=== PATIENT | female | born 1995 | race Caucasian/White ===

== ENCOUNTER 2024-10-30 12:58 | Outpatient (CLI) | payer OTHER, MEDICAID, SELFPAY ==
[2024-10-30] VITALS (21 sets, daily range): BP systolic 116; BP diastolic 63; PULSE 77–93; RESP 18–98; TEMP 36.8; O2SAT 96–100; BMI 29.4
[2024-10-30 13:38] LABS: Collection Type, Urine Clean Catch
[2024-10-30 13:52] LABS: ROM Kit Lot # 57804194; ROM Swab Mixed By: OSEGA; Rupture of Fetal Membranes Negative (Negative); Swb Mxed in Solvent 1 min? Yes
[2024-10-30 13:54] LABS: Bacteria,Urine 1+; Bilirubin,Urine Negative (Negative); Blood,Urine Negative (Negative); Clarity,Urine Clear (Clear/Hazy); Color,Urine Yellow (Lt Yel-Yel); Glucose, Urine Negative (Negative); Ketones,Urine Negative (Negative); Leukocyte Esterase,Urine Positive (Negative); Nitrite,Urine Negative (Negative); Protein,Urine Trace (Neg - Trace); RBC,Urine 4 /hpf (0-3); Specific Gravity,Urine 1.032 (1.001-1.035); Squamous Epithelial Cell,Urine 5 /hpf (0-5); WBC,Urine 3 /hpf (0-5)
[2024-10-30 13:59] LABS: Calcium Oxalate Crystals,Urine Rare
[2024-10-30] MEDS: SODIUM CHLORIDE 0.9% 1000 ML 1,000 ML 999 ML IV (14:10)
[2024-10-30] MEDS: ACETAMINOPHEN 325 MG TABLET 650 MG PO (14:10)
[2024-10-30] MEDS: ceFAZolin/D5W 1 GM IVPB 1 GM/50 ML BAG IV (15:00)
[2024-10-30 15:15] LABS: FFN Specimen Descripton Clr Colrless Aqueous; Fetal Fibronectin Negative (Negative)
== END 2024-10-30 15:55 | disposition home or self-care (01) ==
LOC: S4S1 12:59 → S4SX 13:57
PROVIDERS: Referring Provider Obstetrics & Gynecology; Visit Provider Obstetrics & Gynecology
DX: O26.892 Other specified pregnancy related conditions, second trimester (principal); Z3A.25 25 weeks gestation of pregnancy; M54.50 Low back pain, unspecified; R51.9 Headache, unspecified
CPT/HCPCS: 59025; 81001; 82731; 84112; J0689; J7030; A9270; J0690

== ENCOUNTER 2024-11-20 15:28 | Emergency (ER) | payer MEDICAID, SELFPAY ==
--- NOTE | 2024-11-20 15:35 | PC.NURSE ---
PATIENT IS REFUSING HEART TONES
--- NOTE | 2024-11-20 15:39 | EDNOTE_ITS ---
<Statement entered by Gabi Salmon MD - 11/21/24 09:16> As co-signing physician, I was present and available for consult prn. I concur with the plan and care as documented by the midlevel provider. ED Medical Clearance RME/HPI General Stated complaint: MEDICAL CLEARANCE Time Seen by Provider: 11/20/24 15:30 Arrival date/time: 11/20/24 15:28 RME / HPI RME / HPI Narrative: 29-year-old female patient 3 para 2, about 7 months , was brought in by law enforcement for medical clearance. Apparently patient was brought in for medical clearance due to being at 7 months. Currently patient is denying any vaginal bleeding vaginal spotting abdominal pain pelvic pain or any complaints. Related Information Home Medications ?Medication ?Instructions ?Recorded ?Confirmed aspirin 81 mg capsule 81 mg DAILY 10/30/24 10/30/24 [id number] 1 mg 2 tab PO DAILY 10/30/24 10/30/24 tablet Allergies Allergy/AdvReac Type Severity Reaction Status Date / Time No Known Allergies Allergy Verified 08/28/24 19:43 Review of Systems Review of Systems Narrative Review of Systems: Review of system reviewed and within normal limits except mentioned in HPI ED Exam Narrative Physical exam: VITAL SIGNS: Reviewed. GENERAL APPEARANCE: Alert and interactive, follows commands, no acute distress, HEAD AND FACE: Non-traumatic. ENT: PERRL, pink conjunctivitis, eyelid no trauma, Mucous membrane moist. NECK: Supple, nontender, no nuchal rigidity. CHEST: No tenderness, no crepitus, no paradoxical movement, no retractions. LUNGS: Clear, well ventilated, symmetric, no rales, no wheezing, no ronchi, no stridor, good breath sounds bilaterally. HEART: Regular rate, regular rhythm, no murmur, no gallops. ABDOMEN: Soft, positive bowel sounds, nondistended, no guarding, nontender, no rebound, no masses, RECTAL: Deferred. GENITAL: Deferred. NEUROLOGICAL: Gross motor function intact sensory function intact, Appropriate for age. MUSCULOSKELETAL: low back nontender, full range of motion. EXTREMITIES: Nontender, full range of motion. SKIN: Color pink, dry, no rash, no lacerations, no abrasions, no contusions. LYMPHATICS: Deferred. Course Quality Measures none Medical Clearance MDM Narrative MDM Narrative:: 29-year-old female patient 3 para 2, about 7 months , was brought in by law enforcement for medical clearance. Apparently patient was brought in for medical clearance due to being at 7 months. Currently patient is denying any vaginal bleeding vaginal spotting abdominal pain pelvic pain or any complaints. Patient is refused to have her fetus/baby to be check. Patient signed the form for refusal to be checked Patient data External records reviewed:: None Clinical information provided by:: patient Social determinants that could affect healthcare access:: none Patient has the following chronic illnesses:: None How is presenting disease/condition affected by chronic disease/condition?: no chronic disease Evaluation data The following diagnostics were reviewed and interpreted by me:: other (specify) (None) Lab and/or radiology exams considered but not ordered:: None Interpretation Summary: None Medications / Prescriptions Medications or Prescriptions considered but not ordered:: None Medication administrations:: None Consultations Consultation(s) initiated? (list below): No Diagnosis Medical Clearance Differential Diagnosis: other (Medical clearance for incarceration, , refusal to have her fetus/baby check) Most likely diagnosis given after review of the tests above:: Medical clearance for incarceration, 7 months Admission Indicated Admission indicated?: not indicated (Patient is medically cleared however she refused her fetus to be checked) Explain why admission is indicated or not indicated:: Stable Admission Request Was there a request for admission?: No Disposition Plan Disposition Plan: Discharge Discharge Attestation Discharge Attestation: Patient discharged back to shelter Discharge Plan Plan Patient Disposition: [facility]ci/Court/Law Disposition Comment: Patient refused her fetus to be check Prescriptions/Referrals Prescriptions/Med Rec: No Action aspirin 81 mg Capsule 81 mg DAILY 1 mg Tablet 2 tab PO DAILY Problem List Clinical Impression: Medical clearance for incarceration, and not yet delivered in third trimester Patient/Caregiver Discharge Instructions Education Materials: Reducing Your Health Risks ... Additional Instructions: You have refused to have your fetus/ to be check. If you change your mind you can come back to the emergency room anytime Print Language: Italian Stand Alone Forms: Hilary Award Info., Patient Portal Info Letter AARTI/YG Supervising Physician ANIL Supervising Physician: MD Eleanor
[2024-11-20 15:40] VITALS: BMI 27.4
--- NOTE | 2024-11-20 15:46 | PC.NURSE ---
Pt refused vitals.
== END 2024-11-20 16:00 ==
PROVIDERS: Emergency Provider Emergency Medicine
DX: Z02.89 Encounter for other administrative examinations (principal)
CPT/HCPCS: 99281

== ENCOUNTER 2024-11-29 22:15 | Emergency (ER) | payer MEDICAID, SELFPAY ==
[2024-11-29 22:16] VITALS: BMI 28.6
[2024-11-29 22:41] VITALS: BP 120/78; PULSE 80; RESP 18; TEMP 36.6; O2SAT 96
--- NOTE | 2024-11-29 22:47 | EDNOTE_ITS ---
<Statement entered by Gabi Salmon MD - 11/30/24 04:27> As co-signing physician, I was present and available for consult prn. I concur with the plan and care as documented by the midlevel provider. ED Dental RME/HPI General Chief complaint: Dental/Oral/Throat Stated complaint: Toothache UL Time Seen by Provider: 11/29/24 22:21 Source: patient Arrival date/time: 11/29/24 22:15 29-year-old female approximately 30 weeks presents emergency department complaining of left upper tooth pain has been ongoing for several months. Patient reports past pending dentist appointment in about a week with specialist in [place]. Patient reports has been taking Tylenol at home with some improvement but presents emergency department requesting antibiotics until she sees dentist. Mode of arrival: ambulatory Limitations: no limitations Related Data Home Medications ?Medication ?Instructions ?Recorded ?Confirmed aspirin 81 mg capsule 81 mg DAILY 10/30/24 10/30/24 [id number] 1 mg 2 tab PO DAILY 10/30/24 10/30/24 tablet Previous Rx's ?Medication ?Instructions ?Recorded acetaminophen 500 mg capsule 500 mg PO Q6H PRN pain #30 caps 11/29/24 penicillin V potassium 500 mg 500 mg PO QID 7 days #28 tabs 11/29/24 tablet Allergies Allergy/AdvReac Type Severity Reaction Status Date / Time No Known Allergies Allergy Verified 08/28/24 19:43 Review of Systems Review of Systems Systems Reviewed: All systems reviewed, normal except as documented Constitutional Constitutional: Reports system reviewed and no additional complaints, except as documented, Denies body ache(s), Denies chills and Denies fever(s) Eyes Eyes: Reports system reviewed and no additional complaints, except as documented and Denies change in vision ENT Ears, Nose, Mouth, and Throat: Reports system reviewed and no additional complaints, except as documented, Denies disequilibrium, Denies dizziness, Reports mouth pain (Tooth pain), Denies sore throat and Denies vertigo Cardiovascular Cardiovascular: Reports system reviewed and no additional complaints, except as documented, Denies chest pain and Denies dyspnea Respiratory Respiratory: Reports system reviewed and no additional complaints, except as documented, Denies chest congestion, Denies cough and Denies dyspnea Gastrointestinal Gastrointestinal: Reports system reviewed and no additional complaints, except as documented, Denies abdominal pain, Denies nausea and Denies vomiting Musculoskeletal Musculoskeletal: Reports system reviewed and no additional complaints, except as documented, Denies abnormal gait and Denies arthralgias Integumentary/Breasts Skin/Breast: Reports system reviewed and no additional complaints, except as documented, Denies erythema, Denies rash and Denies wounds Neurologic Neurologic: Reports system reviewed and no additional complaints, except as documented, Denies abnormal gait, Denies disequilibrium, Denies dizziness and Denies vertigo Past Medical History Past Medical History CARDIAC: Negative Congestive Heart Failure RESPIRATORY: Negative Chronic Obstructive Pulmonary Disease (COPD) GASTROINTESTINAL: Positive Gall Bladder Disease GENITOURINARY: Negative Renal Disease ENDOCRINE: Negative Diabetes Mellitus Type 1 or Diabetes Mellitus Type 2 Social History SMOKING STATUS: Never smoker SUBSTANCE USE: marijuana (wax marijuana) ED Exam General Limitations: Present no limitations General appearance: Present alert and in no apparent distress Head Head exam: Present atraumatic Eye Eye exam: Present normal appearance, PERRL and EOMI ENT ENT exam: Present normal exam, normal oropharynx and mucous membranes moist Expanded ENT Exam Teeth exam: Present dental caries and gingival swelling Throat exam: Absent tonsillar erythema or tonsillomegaly Neck Neck exam: Present normal inspection, full ROM and trachea midline Chest Chest inspection: Present normal inspection and symmetric chest wall rise Respiratory Respiratory exam: Present normal lung sounds bilaterally Cardiovascular Cardiovascular exam: Present regular rate, normal rhythm and normal heart sounds Abdominal Exam Abdominal exam: Present soft and normal bowel sounds Extremities Exam Extremities exam: Present normal inspection and full ROM Back Exam Back exam: Present normal inspection and full ROM Neurological Exam Neurological exam: Present alert, oriented X3 and CN II-XII intact Psychiatric Psychiatric exam: Present normal affect and normal mood Skin Skin exam: Present warm, dry, intact and normal color Course Quality Measures none Orders Category Date Time Status cefTRIAXone [Rocephin] 1,000 mg Med 11/29/24 22:47 Discontinued Lidocaine 1% 20 ml [Xylocaine 1% 20 ML] 2.1 ml IM X1 Vital Signs Vital signs: Vital Signs Temperature 97.9 F 11/29/24 22:41 Pulse Rate 80 11/29/24 22:41 Respiratory Rate 18 11/29/24 22:41 Blood Pressure 120/78 11/29/24 22:41 Pulse Oximetry (%) 96 11/29/24 22:41 Oxygen Delivery Method Room Air 11/29/24 22:41 96% room air within normal limits Dental / Oral MDM Narrative MDM Narrative:: 29-year-old female approximately 30 weeks presents emergency department complaining of left upper tooth pain has been ongoing for several months. Patient reports past pending dentist appointment in about a week with specialist in [place]. Patient reports has been taking Tylenol at home with some improvement but presents emergency department requesting antibiotics until she sees dentist. Patient appears nontoxic and is hemodynamically stable. Left upper maxillary teeth molar tooth appears to be infected with gingival swelling around tooth. Will treat with antibiotics and instruct patient to follow-up with dentist as she reported. Instructed to return to emergency department for any worsening symptoms or as needed. Patient data External records reviewed:: [facility] previous records Clinical information provided by:: patient Social determinants that could affect healthcare access:: none Patient has the following chronic illnesses:: None How is presenting disease/condition affected by chronic disease/condition?: no chronic disease Evaluation data The following diagnostics were reviewed and interpreted by me:: other (specify) (n/a) Lab and/or radiology exams considered but not ordered:: n/a Interpretation Summary: n/a Medications / Prescriptions Medications or Prescriptions considered but not ordered:: Ordered Medication administrations:: Medication Administration History Discontinued Medications Ceftriaxone Sodium 1,000 mg/ (Lidocaine HCl 2.1 ml) 0 mg IM X1 ONE Stop: 11/29/24 22:48 Last Admin: 11/29/24 23:11 Dose: 1,000 mg Documented By: Given Consultations Consultation(s) initiated? (list below): No Diagnosis Dental Differential Diagnosis: gingival abscess, dental caries, toothache, dental abscess, fracture of tooth and aphthous ulcer Most likely diagnosis given after review of the tests above:: Infected tooth Admission Indicated Admission indicated?: not indicated Admission Request Was there a request for admission?: No Disposition Plan Disposition Plan: Discharge Discharge Attestation Discharge Attestation: The patient and all family members were given an opportunity to ask questions and understood the discharge instructions. Discharge instructions specifically effects, indications for sooner follow up or return to the emergency department, and the expected course of current diagnosis. Patient condition: Stable Discharge Plan Plan Patient Disposition: HOME (Self Care) Disposition Comment: Stable Prescriptions/Referrals Prescriptions/Med Rec: New acetaminophen 500 mg capsule 500 mg PO Q6H PRN (Reason: pain) Qty: 30 0RF penicillin V potassium 500 mg tablet 500 mg PO QID 7 Days Qty: 28 0RF No Action aspirin 81 mg Capsule 81 mg DAILY 1 mg Tablet 2 tab PO DAILY Problem List Clinical Impression: Infected tooth Patient/Caregiver Discharge Instructions Discharge Activity: activity as tolerated Education Materials: ED Tooth Abscess Additional Instructions: Drink plenty of fluids and stay hydrated. Take medication as prescribed. Follow-up with primary care provider and dentist in 2 to 3 days for reevaluation. Return to emergency department for any worsening symptoms or as needed. Print Language: Turkish Stand Alone Forms: Hilary Award Info., Patient Portal Info Letter PA/PRODUCE DEPARTMENT MANAGER Supervising Physician PA/PRODUCE DEPARTMENT MANAGER Supervising Physician: Dr. Salmon
[2024-11-29] MEDS: cefTRIAXone 1,000 MG, LIDOCAINE 1% 20 ML 2.1 ML IM (23:11)
== END 2024-11-30 00:20 | disposition home or self-care (01) ==
LOC: SERX 23:10
PROVIDERS: Emergency Provider Emergency Medicine; PCP Student in an Organized Health Care Education/Training Program
DX: K04.7 Periapical abscess without sinus (principal)
CPT/HCPCS: 96372; 99283; J0696; J3490

== ENCOUNTER 2024-12-26 23:05 | Observation (INO) | payer MEDICAID, SELFPAY ==
[2024-12-26] VITALS (7 sets, daily range): BP systolic 120; BP diastolic 62; PULSE 76–91; RESP 17–99; TEMP 36.8; O2SAT 96–97; BMI 31.3
[2024-12-27 00:04] VITALS: PULSE 79; O2SAT 98
[2024-12-27] MEDS: ACETAMINOPHEN 500 MG TABLET 1000 MG PO (00:05)
[2024-12-27 00:13] LABS: Collection Type, Urine Voided
[2024-12-27 00:24] LABS: Bacteria,Urine Rare; Bilirubin,Urine Negative (Negative); Blood,Urine Negative (Negative); Budding Yeast,Urine Present; Clarity,Urine Turbid (Clear/Hazy); Color,Urine Yellow (Lt Yel-Yel); Glucose, Urine Negative (Negative); Ketones,Urine Negative (Negative); Leukocyte Esterase,Urine Negative (Negative); Nitrite,Urine Negative (Negative); PH,Urine 6.5 (5.0-7.0); Protein,Urine Negative (Neg - Trace); RBC,Urine 4 /hpf (0-3); Specific Gravity,Urine 1.024 (1.001-1.035); Squamous Epithelial Cell,Urine 1 /hpf (0-5); Urobilinogen,Urine Negative mg/dL (0.0-1.0); WBC,Urine 11 /hpf (0-5)
[2024-12-27] MEDS: FLUCONAZOLE 150 MG TABLET PO (00:54)
== END 2024-12-27 01:00 | disposition home or self-care (01) ==
PROVIDERS: Admitting Provider Obstetrics & Gynecology; Visit Provider Obstetrics & Gynecology
DX: O26.893 Other specified pregnancy related conditions, third trimester (principal); Z3A.34 34 weeks gestation of pregnancy; R10.2 Pelvic and perineal pain
CPT/HCPCS: 59025; 59899; 81001; A9270

== ENCOUNTER 2025-04-17 12:21 | Emergency (ER) | payer MEDICAID, SELFPAY ==
[2025-04-17 12:44] VITALS: BP 133/84; PULSE 111; RESP 24; TEMP 38.1; O2SAT 95; BMI 32.4
--- NOTE | 2025-04-17 12:59 | PD.EDRME ---
Rapid Medical Screening Exam RME Arrival date/time: 04/17/25 12:21 Chief Complaint: Fever Time Seen by Provider: 04/17/25 12:22 Vital signs: Vital Signs Temperature 100.5 F H 04/17/25 12:44 Pulse Rate 111 H 04/17/25 12:44 Respiratory Rate 24 H 04/17/25 12:44 Blood Pressure 133/84 H 04/17/25 12:44 Pulse Oximetry (%) 95 04/17/25 12:44 Oxygen Delivery Method Room Air 04/17/25 12:44 Vital signs reviewed by provider: Yes RME Narrative: 30-year-old female presents for evaluation of fever x 1 day. Patient reports bilateral flank pain, dysuria and nausea without emesis. Patient is currently 10 weeks post .
--- NOTE | 2025-04-17 13:01 | XR_ITS ---
Examination: PA lateral chest 2 views Technique: Upright PA lateral chest Date and time: 04 17, 2024, 1330 hrs. Indications: Chest pain 10 wks Findings: Normal heart size. Lungs are clear. The osseous structures are intact. Impression: No active disease
--- NOTE | 2025-04-17 13:01 | EKG_ITS ---
[facility] Test Date: 2025-04-17 Pat Name: JEANETTE DOVER Department: Room: - Gender: Female Electrotyper Helper: : 1995 Requested By: Demetrio Schneider Order Number: [id number] Reading MD: Demetrio Schneider Measurements Intervals [place] Rate: 94 P: 47 TN: 140 QRS: 0 QRSD: 95 T: 31 QT: 338 QTc: 423 Interpretive Statements SINUS RHYTHM No previous ECG available for comparison /store/S0/[id number]/ecg/[id number].pdf
[2025-04-17 13:10] VITALS: PULSE 99
[2025-04-17] MEDS: HYDROcodone/APAP 10/325 TAB PO (13:13)
[2025-04-17] MEDS: SODIUM CHLORIDE 0.9% 1000 ML 1,000 ML 999 ML IV (13:13)
[2025-04-17] MEDS: cefTRIAXone/D5w 1gm IV premix 1 GM/50 ML BAG IV (13:17)
--- NOTE | 2025-04-17 13:20 | PD.EDFEVER ---
ED Fever RME/HPI General Chief Complaint: Fever Stated Complaint: Fever, lower back pain Time Seen by Provider: 04/17/25 12:22 Arrival date/time: 04/17/25 12:21 RME / HPI RME / HPI Narrative: 30-year-old female presents for evaluation of fever x 1 day. Patient reports bilateral flank pain, dysuria and nausea without emesis. Severity of symptoms mild. Patient denies any sore throat, denies any abdominal pain, denies any dysuria frequency or other complaints. Patient is currently 10 weeks post . Related Data Home Medications ?Medication ?Instructions ?Recorded ?Confirmed aspirin 81 mg capsule 81 mg DAILY 10/30/24 10/30/24 [id number] 1 mg 2 tab PO DAILY 10/30/24 12/27/24 tablet Previous Rx's ?Medication ?Instructions ?Recorded ibuprofen 800 mg tablet 800 mg PO Q8H PRN pain #30 tabs 04/17/25 levofloxacin 750 mg tablet 750 mg PO Q24H 7 days #7 tabs 04/17/25 ondansetron HCl 4 mg tablet 4 mg PO Q8H PRN nausea and 04/17/25 vomiting 5 days #30 tabs Allergies Allergy/AdvReac Type Severity Reaction Status Date / Time No Known Allergies Allergy Verified 04/17/25 12:26 Review of Systems Review of Systems Narrative Review of Systems: Review of system reviewed and within normal limits except mentioned in HPI Physical Exam Narrative Physical exam: VITAL SIGNS: Reviewed. GENERAL APPEARANCE: Alert and interactive, follows commands, no acute distress, HEAD AND FACE: Non-traumatic. ENT: PERRL, pink conjunctivitis, eyelid no trauma, Mucous membrane moist. NECK: Supple, nontender, no nuchal rigidity. CHEST: No tenderness, no crepitus, no paradoxical movement, no retractions. LUNGS: Clear, well ventilated, symmetric, no rales, no wheezing, no ronchi, no stridor, good breath sounds bilaterally. HEART: Regular rate, regular rhythm, no murmur, no gallops. ABDOMEN: Soft, positive bowel sounds, nondistended, no guarding, nontender, no rebound, no masses, bilateral flank tenderness RECTAL: Deferred. GENITAL: Deferred. NEUROLOGICAL: Gross motor function intact sensory function intact, Appropriate for age. MUSCULOSKELETAL: low back nontender, full range of motion. EXTREMITIES: Nontender, full range of motion. SKIN: Color pink, dry, no rash, no lacerations, no abrasions, no contusions. LYMPHATICS: Deferred. Course Quality Measures none Orders Category Date Time Status Bedside COVID-19 Antigen Test NOW Care 04/17/25 13:11 Active Bedside Influenza A&B Antigen Test NOW Care 04/17/25 13:11 Completed Bending Shed Worker STAT Care 04/17/25 13:01 Active Continuous Pulse Oximetry STAT Care 04/17/25 13:01 Completed EKG (ED ONLY) *Do not use* NOW Care 04/17/25 13:01 Completed Insert IV NOW Care 04/17/25 13:01 Active NPO STAT Care 04/17/25 13:01 Active Strict Intake and Output Routine Care 04/17/25 13:01 Ordered EKG (ED Only) Stat Exams 04/17/25 13:01 Draft XR chest 2V Stat Exams 04/17/25 13:01 Completed B-Type Natriuretic Peptide Stat Lab 04/17/25 13:14 Completed Blood Culture (Lab) Stat Lab 04/17/25 13:14 Received CBC Stat Lab 04/17/25 13:14 Completed Comprehensive Metabolic Panel Stat Lab 04/17/25 13:14 Completed HCG Qualitative,Urine Stat Lab 04/17/25 13:27 Completed LDH (Lactate Dehydrogenase) Stat Lab 04/17/25 13:14 Completed Lactate (Lactic Acid) Stat Lab 04/17/25 13:14 Completed Lipase Stat Lab 04/17/25 13:14 Completed Magnesium Stat Lab 04/17/25 13:14 Completed Partial Thromboplastin Time Stat Lab 04/17/25 13:14 Completed Phosphorous Stat Lab 04/17/25 13:14 Completed Procalcitonin Stat Lab 04/17/25 13:14 Completed Prothrombin Time with INR Stat Lab 04/17/25 13:14 Completed Troponin I Stat Lab 04/17/25 13:14 Completed Urinalysis Stat Lab 04/17/25 13:27 Completed Urine Culture Stat Lab 04/17/25 13:27 Received HYDROcodone/APAP 10/325 [[place] 10/325] Med 04/17/25 13:03 Discontinued 1 tab PO X1 ONE Ketorolac Inj [Toradol Inj] Med 04/17/25 16:11 Discontinued 30 mg IVP X1 ONE Ondansetron Inj [Zofran Inj] Med 04/17/25 16:11 Discontinued 4 mg IVP X1 ONE Sodium Chloride 0.9% 1000 ml [Ns] 1,000 ml Med 04/17/25 13:03 Discontinued IV 999 mls/hr cefTRIAXone/D5w 1gm IV premix [Rocephin/D5w 1gm IV Med 04/17/25 13:01 Discontinued premix] 1 gm in 50 ml IV X1 Oxygen Delivery NOW RT 04/17/25 13:01 Active Vital Signs Vital signs: Vital Signs Temperature 100.5 F H 04/17/25 12:44 Pulse Rate 111 H 04/17/25 12:44 Respiratory Rate 24 H 04/17/25 12:44 Blood Pressure 133/84 H 04/17/25 12:44 Pulse Oximetry (%) 95 04/17/25 12:44 Oxygen Delivery Method Room Air 04/17/25 12:44 Fever MDM Narrative MDM Narrative:: 30-year-old female presents for evaluation of fever x 1 day. Patient reports bilateral flank pain, dysuria and nausea without emesis. Severity of symptoms mild. Patient denies any sore throat, denies any abdominal pain, denies any dysuria frequency or other complaints. Patient is currently 10 weeks post . Patient denies any vaginal discharges. Denies any foul-smelling vaginal odor. CBC showed no leukocytosis, CMP unremarkable. Pro-Jai is normal urinalysis positive for UTI chest x-ray came back unremarkable. EKG shows sinus rhythm, ventricular 74 bpm, no ST segment elevation or depression noted. Patient received IV fluids, ceftriaxone IV, [place] and Toradol. Was also given Zofran. Patient was noted to be tolerating well specially p.o. fluids. Patient is afebrile prior to discharge. Patient data External records reviewed:: None Clinical information provided by:: patient Social determinants that could affect healthcare access:: none Patient has the following chronic illnesses:: None How is presenting disease/condition affected by chronic disease/condition?: no chronic disease Evaluation data The following diagnostics were reviewed and interpreted by me:: lab results, radiology exam(s) and EKG tracing(s) Lab and/or radiology exams considered but not ordered:: None Interpretation Summary: See results MDM Medications / Prescriptions Medications or Prescriptions considered but not ordered:: None Medication administrations:: Medication Administration History Discontinued Medications Hydrocodone Bitart/Acetaminophen (Hydrocodone/Apap 10/325 Tab) 1 tab PO X1 ONE Stop: 04/17/25 13:04 Last Admin: 04/17/25 13:13 Dose: 1 tab Documented By: EMERALD Ceftriaxone Sodium/Dextrose (Rocephin/D5w 1gm Iv Premix) 1 gm in 50 mls @ 100 mls/hr IV X1 ONE Stop: 04/17/25 13:30 Last Infusion: 04/17/25 14:23 Dose: Infused Documented By: Admin: 04/17/25 13:17 Dose: 100 mls/hr Documented By: EMERALD Sodium Chloride (Ns) 1,000 mls @ 999 mls/hr IV .Q1H1M ONE Stop: 04/17/25 14:03 Last Admin: 04/17/25 13:13 Dose: 999 mls/hr Documented By: EMERALD Ketorolac Tromethamine (Ketorolac Inj 30 Mg/Ml Vial) 30 mg IVP X1 ONE Stop: 04/17/25 16:12 Ondansetron HCl (Ondansetron Inj 2 Mg/Ml Inj 2 Ml) 4 mg IVP X1 ONE; Protocol Stop: 04/17/25 16:12 Toradol Zofran IV fluids ceftriaxone [place] Consultations Consultation(s) initiated? (list below): No Diagnosis Fever Differential Diagnosis: sepsis and other (Fever, UTI) Most likely diagnosis given after review of the tests above:: Fever, UTI Admission Indicated Admission indicated?: not indicated Admission Request Was there a request for admission?: No Disposition Plan Disposition Plan: Discharge Discharge Attestation Discharge Attestation: The patient and all family members were given an opportunity to ask questions and understood the discharge instructions. Discharge instructions specifically effects, indications for sooner follow up or return to the emergency department, and the expected course of current diagnosis. Patient condition: Stable Discharge Plan Plan Patient Disposition: HOME (Self Care) Discharge Disposition comment: stable Prescriptions/Referrals Prescriptions/Med Rec: New levofloxacin 750 mg tablet 750 mg PO Q24H 7 Days Qty: 7 0RF ondansetron HCl 4 mg tablet 4 mg PO Q8H PRN (Reason: nausea and vomiting) 5 Days Qty: 30 0RF ibuprofen 800 mg tablet 800 mg PO Q8H PRN (Reason: pain) Qty: 30 0RF No Action aspirin 81 mg Capsule 81 mg DAILY 1 mg Tablet 2 tab PO DAILY Referrals: Oneida Zhong MD [Primary Care Provider] - In 1 week Problem List Clinical Impression: Fever, UTI (urinary tract infection) Patient/Caregiver Discharge Instructions Discharge Activity: activity as tolerated Education Materials: Understanding Urinary Tract ... Additional Instructions: Thank you for the opportunity for serving you today. You are stable for discharged . You are advised to: Follow-up with your PCP in 1 to 2 days Return to ED for worsening of symptoms Increase oral fluids Take medication as prescribed Print Language: Citizen Of [place] Stand Alone Forms: Hilary Award Info., Patient Portal Info Letter
[2025-04-17 13:23] LABS: Lactate (Lactic Acid) 1.1 mMol/L (0.4-2.0)
[2025-04-17 13:28] LABS: Basophils % (Auto) 0 % (0-2.5); Eosinophils # (Auto) 0.1 Thou/mm3 (0.0-0.5); Eosinophils % (Auto) 1 % (0-10); Hematocrit 39.7 % (36.0-46.0); Hemoglobin 14.3 g/dL (12.0-16.0); Immature Granulocytes % (Auto) 0 % (0-0); Immature Granulocytes Auto 0.04 Thou/mm3 (0.00-0.00); Lymphocytes # (Auto) 1.1 Thou/mm3 (1.0-4.8); Lymphocytes % (Auto) 11 % (10-50); Mean Corpuscular Hemoglobin 28.5 pg (25.0-35.0); Mean Corpuscular Volume 79 fL (80-100); Monocytes # (Auto) 0.7 Thou/mm3 (0.0-0.8); Monocytes % (Auto) 7 % (0-12); Neutrophils # (Auto) 7.9 Thou/mm3 (1.8-7.7); Neutrophils % (Auto) 81 % (37-80); Nucleated Red Blood Cell % 0 /100 WBC (0); Platelet Count 213 Thou/mm3 (140-440); RDW Standard Deviation 37.8 fL (36.4-46.3); Red Blood Count 5.02 Miln/mm3 (4.00-5.20); White Blood Count 9.8 Thou/mm3 (3.6-11.0)
--- NOTE | 2025-04-17 13:29 | PC.NURSE ---
PT REFUSED STRAIGHT CATH. CLEAN CATCH URINE WAS COLLECTED AND SENT
[2025-04-17 13:44] LABS: Partial Thromboplastin Time 29.2 Seconds (22.0-36.0); Prothrombin Time 10.7 Seconds (9.0-12.2)
[2025-04-17 13:52] LABS: Collection Type, Urine Clean Catch
[2025-04-17 13:52] LABS: B-Type Natriuretic Peptide < 20 pg/mL (0-100)
[2025-04-17 13:53] LABS: Alanine Aminotransferase 54 U/L (10-49); Albumin, Serum 4.7 gm/dL (3.5-5.0); Alkaline Phosphatase 100 U/L (46-116); Anion Gap 10 (7-16); Aspartate Amino Transferase 27 U/L (0-34); BUN/Creatinine Ratio 13 Ratio (12-20); Bilirubin,Total 0.6 mg/dL (0.3-1.2); Blood Urea Nitrogen 9 mg/dL (9-23); Calcium 8.5 mg/dL (8.3-10.6); Calcium (Corrected) 8.5 mg/dL (8.5-10.1); Carbon Dioxide 26.9 mMol/L (20.0-31.0); Chloride 104 mMol/L (98-107); Creatinine (Component) 0.7 mg/dL (0.6-1.3); Globulin 2.3 gm/dL (2.3-3.5); Glucose 102 mg/dL (74-106); LDH (Lactate Dehydrogenase) 167 U/L (120-246); Lipase 27 U/L (12-53); Magnesium 1.7 mg/dL (1.6-2.6); Osmolality,Calculated 279 (275-295); Phosphorous 2.3 mg/dL (2.4-5.1); Potassium 3.7 mMol/L (3.4-5.1); Sodium 141 mMol/L (136-145); Troponin I < 0.002 ng/mL (0.0-0.045); eGFR > 60 See Note
[2025-04-17 14:06] LABS: Bacteria,Urine 1+; Bilirubin,Urine Negative (Negative); Blood,Urine Trace (Negative); Clarity,Urine Clear (Clear/Hazy); Color,Urine Lt-Yellow (Lt Yel-Yel); Glucose, Urine Negative (Negative); Ketones,Urine Negative (Negative); Leukocyte Esterase,Urine Positive (Negative); Nitrite,Urine Negative (Negative); PH,Urine 6.5 (5.0-7.0); Protein,Urine Negative (Neg - Trace); RBC,Urine 4 /hpf (0-3); Specific Gravity,Urine 1.023 (1.001-1.035); Squamous Epithelial Cell,Urine 18 /hpf (0-5); Urobilinogen,Urine Negative mg/dL (0.0-1.0); WBC,Urine 2 /hpf (0-5)
[2025-04-17 14:24] LABS: HCG Qualitative,Urine Negative
[2025-04-17 16:20] VITALS: BP 127/73; PULSE 93; RESP 17; TEMP 38; O2SAT 99
[2025-04-17] MEDS: ONDANSETRON INJ 2 MG/ML INJ 2 ML 4 MG IVP (17:39)
[2025-04-17] MEDS: KETOROLAC INJ 30 MG/ML VIAL IVP (17:42)
[2025-04-17 18:25] VITALS: BP 123/71; PULSE 92; RESP 12; TEMP 36.9; O2SAT 97
== END 2025-04-17 18:09 | disposition home or self-care (01) ==
PROVIDERS: Physician Assistant; Emergency Provider Licensed Practical Nurse; PCP Student in an Organized Health Care Education/Training Program
DX: N39.0 Urinary tract infection, site not specified (principal); R07.9 Chest pain, unspecified
CPT/HCPCS: 36415; 71046; 80053; 81001; 81025; 83605; 83615; 83690; 83735; 83880; 84100; 84145; 84484; 85025; 85610; 85730; 87040; 87086; 87400; 87811; 93005; 96361; 96365; 96375; 99284; J0696; J1885; J2405; J7030; A9270

== ENCOUNTER 2025-08-16 00:53 | Emergency (ER) | payer MEDICAID, SELFPAY ==
[2025-08-16 00:53] VITALS: BMI 32.8
[2025-08-16 01:15] VITALS: BP 131/84; PULSE 84; RESP 20; TEMP 36.7; O2SAT 98
--- NOTE | 2025-08-16 01:20 | PD.EDDENTL ---
ED Dental RME/HPI General Chief complaint: Dental/Oral/Throat Stated complaint: TOOTHACHE Time Seen by Provider: 08/16/25 01:17 Arrival date/time: This is a case of 30-year-old female with no medical history came into the emergency room due to left upper dental pain with gum swelling for 2 days worsening of the symptoms this patient decided to sought consult here in the emergency room Limitations: no limitations Related Data Home Medications ?Medication ?Instructions ?Recorded ?Confirmed aspirin 81 mg capsule 81 mg DAILY 10/30/24 10/30/24 [id number] 1 mg 2 tab PO DAILY 10/30/24 12/27/24 tablet Previous Rx's ?Medication ?Instructions ?Recorded ibuprofen 800 mg tablet 800 mg PO Q8H PRN pain #30 tabs 04/17/25 clindamycin HCl 300 mg capsule 300 mg PO TID #30 caps 08/16/25 (Cleocin HCl) hydrocodone 5 mg-acetaminophen 325 1 tab PO Q6H PRN pain #12 tabs 08/16/25 mg tablet Allergies Allergy/AdvReac Type Severity Reaction Status Date / Time No Known Allergies Allergy Verified 04/17/25 12:26 Review of Systems Review of Systems Systems Reviewed: All systems reviewed, normal except as documented Constitutional Constitutional: Reports system reviewed and no additional complaints, except as documented and Reports as per HPI ENT Ears, Nose, Mouth, and Throat: Reports system reviewed and no additional complaints, except as documented and Reports as per HPI Cardiovascular Cardiovascular: Reports system reviewed and no additional complaints, except as documented and Reports as per HPI Respiratory Respiratory: Reports system reviewed and no additional complaints, except as documented and Reports as per HPI Gastrointestinal Gastrointestinal: Reports system reviewed and no additional complaints, except as documented and Reports as per HPI Neurologic Neurologic: Reports system reviewed and no additional complaints, except as documented Past Medical History Past Medical History CARDIAC: Negative Congestive Heart Failure RESPIRATORY: Negative Chronic Obstructive Pulmonary Disease (COPD) GASTROINTESTINAL: Positive Gall Bladder Disease GENITOURINARY: Negative Renal Disease ENDOCRINE: Negative Diabetes Mellitus Type 1 or Diabetes Mellitus Type 2 Social History SMOKING STATUS: Never smoker SUBSTANCE USE: marijuana (wax marijuana) ED Exam General Limitations: Present no limitations General appearance: Present alert, in no apparent distress and other Head Head exam: Present atraumatic, normocephalic and normal inspection Eye Eye exam: Present normal appearance, PERRL and EOMI ENT ENT exam: Present normal exam, normal oropharynx, mucous membranes moist and other (HEENT exam is normal and unremarkable except tooth exam) Expanded ENT Exam Mouth exam: Present normal external inspection Teeth numbered:  1. Dental Tenderness (Noted tenderness on tooth #15 and 16 with mild swelling possible abscess no fluctuance not indurated no tooth fracture no tooth avulsion no cellulitis) Neck Neck exam: Present normal inspection, full ROM and trachea midline; Absent tenderness, meningismus, lymphadenopathy or thyromegaly Chest Chest inspection: Present normal inspection and symmetric chest wall rise; Absent tenderness Respiratory Respiratory exam: Present normal lung sounds bilaterally; Absent respiratory distress, wheezes, stridor, accessory muscle use or prolonged expiratory phase Cardiovascular Cardiovascular exam: Present regular rate, normal rhythm and normal heart sounds; Absent bradycardia, tachycardia, irregular rhythm, systolic murmur or diastolic murmur Abdominal Exam Abdominal exam: Present soft and normal bowel sounds Extremities Exam Extremities exam: Present normal inspection and full ROM Back Exam Back exam: Present normal inspection and full ROM Neurological Exam Neurological exam: Present alert, oriented X3, CN II-XII intact, normal gait and reflexes normal; Absent motor sensory deficit Psychiatric Psychiatric exam: Present normal affect and normal mood Skin Skin exam: Present warm, dry, intact and normal color Course Quality Measures none Orders Category Date Time Status Clindamycin [Cleocin] Med 08/16/25 01:17 Discontinued 300 mg PO X1 ONE HYDROcodone*/APAP 5/325 [[place] 5/325] Med 08/16/25 01:17 Discontinued 1 tab PO X1 ONE Vital Signs Vital signs: Vital Signs Temperature 98.1 F 08/16/25 01:15 Pulse Rate 84 08/16/25 01:15 Respiratory Rate 20 08/16/25 01:15 Blood Pressure 131/84 H 08/16/25 01:15 Pulse Oximetry (%) 98 08/16/25 01:15 Oxygen Delivery Method Room Air 08/16/25 01:15 Oxygen saturation is 98% room air Dental / Oral MDM Narrative MDM Narrative:: This is a case of 30-year-old female with no medical history came into the emergency room due to left upper dental pain with gum swelling for 2 days worsening of the symptoms this patient decided to sought consult here in the emergency room physical examination patient is awake alert oriented not in distress nontoxic looking well-hydrated well-nourished HEENT exam is normal noted tooth #15, #16 mild to moderate tenderness when tapping with tongue depressor with mild swelling possible abscess no fluctuance not indurated no cellulitis no fractured tooth no avulsion to at the time of exam no indication to perform incision and drainage antibiotic treatment only at this time the rest of the physical examination neurological exam is normal and unremarkable no drooling of saliva no signs and symptoms of Ludewig's angina patient was given clindamycin and [place] here in the emergency room and discharged with the same medication patient will follow up with PCP in 2 days for reevaluation it is very important to see dentist was advised to the patient for reevaluation and possible dental procedure for any worsening symptoms or emergent concern return precaution in the ER was advised Patient was discharged with comfortable condition walking with stable gait. Patient verbalized no further complains explained diagnosis and answered patient question. Patient is comfortable with the proposed management plan including the need to follow up with his/her primary care physician and any specialist if applicable Discussed patient for any urgent condition or worsening sx, He/She needed to go to emergency room immediately or call 911. Patient acknowledge the responsibility to follow up as instructed and to monitor her/his symptoms. For any persistence of the symptoms for more than 3-5 days return precaution advised. Discussed the result of the test and was given printed discharge instruction Patient data External records reviewed:: [facility] previous records Clinical information provided by:: patient Social determinants that could affect healthcare access:: none Patient has the following chronic illnesses:: None How is presenting disease/condition affected by chronic disease/condition?: no chronic disease Evaluation data The following diagnostics were reviewed and interpreted by me:: other (specify) (None) Lab and/or radiology exams considered but not ordered:: None Interpretation Summary: None Medications / Prescriptions Medications or Prescriptions considered but not ordered:: Given Medication administrations:: Medication Administration History Discontinued Medications Hydrocodone Bitart/Acetaminophen (Hydrocodone/[place]ap 5/325 Tablet) 1 tab PO X1 ONE Stop: 08/16/25 01:18 Clindamycin HCl (Clindamycin 150 Mg Capsule) 300 mg PO X1 ONE Stop: 08/16/25 01:18 Given Consultations Consultation(s) initiated? (list below): No Diagnosis Dental Differential Diagnosis: gingival abscess, dental caries, toothache and dental abscess Most likely diagnosis given after review of the tests above:: Tooth abscess Admission Indicated Admission indicated?: not indicated Explain why admission is indicated or not indicated:: Not indicated Admission Request Was there a request for admission?: No Admission Attestation Admission request attestation: Not indicated Disposition Plan Disposition Plan: Discharge Discharge Attestation Discharge Attestation: The patient and all family members were given an opportunity to ask questions and understood the discharge instructions. Discharge instructions specifically effects, indications for sooner follow up or return to the emergency department, and the expected course of current diagnosis. Patient condition: Stable Discharge Plan Plan Patient Disposition: HOME (Self Care) Patient condition on transfer: Stable Prescriptions/Referrals Prescriptions/Med Rec: New clindamycin HCl [Cleocin HCl] 300 mg capsule 300 mg PO TID Qty: 30 0RF hydrocodone-acetaminophen 5-325 mg tablet 1 tab PO Q6H MDD max 4 tabs per day PRN (Reason: pain) Qty: 12 0RF No Action aspirin 81 mg Capsule 81 mg DAILY 1 mg Tablet 2 tab PO DAILY ibuprofen 800 mg tablet 800 mg PO Q8H PRN (Reason: pain) Qty: 30 0RF Referrals: Temporary Provider,ED [Primary Care Provider, Emergency Medicine] - In 1 week Problem List Clinical Impression: Tooth abscess Patient/Caregiver Discharge Instructions Education Materials: ED Tooth Abscess Additional Instructions: Follow-up with your primary care physician in 2 days for reevaluation it is very important to see your dentist in 2 days for reevaluation and possible dental procedure persistent worsening symptoms or any emergent concern call 911 or go to the nearest emergency room take your medication as directed finish the course of antibiotic oral care is advised Print Language: Romansh Stand Alone Forms: Hilary Award Info., Patient Portal Info Letter PA/YG Supervising Physician AARTI/YG Supervising Physician: Dr. Man Nye
[2025-08-16] MEDS: CLINDAMYCIN 150 MG CAPSULE 300 MG PO (01:47)
[2025-08-16] MEDS: HYDROcodone/APAP 5/325 TABLET 1 TAB PO (01:47)
== END 2025-08-16 01:52 | disposition home or self-care (01) ==
PROVIDERS: Emergency Provider Emergency Medicine; PCP Student in an Organized Health Care Education/Training Program
DX: K04.7 Periapical abscess without sinus (principal)
CPT/HCPCS: 99282; A9270